=== PATIENT | female | born 1995 | race Caucasian/White ===

== ENCOUNTER 2024-12-31 17:50 | Emergency (ER) | payer OTHER ==
[~2024-12-31] VITALS: Ht 175.3 cm; Wt 76.4 kg
[2024-12-31] MEDS ORDERED: prednisoLONE ACETATE 1% 10 ML BTL OU ONE (20:15)
[2024-12-31 21:05] VITALS: BP 131/78
== END 2024-12-31 21:07 | disposition home or self-care (01) ==
LOC: ED 17:50
DX: H57.89 Other specified disorders of eye and adnexa (principal)
CPT/HCPCS: 99283

== ENCOUNTER 2025-03-09 17:22 | Emergency (ER) | payer OTHER ==
[~2025-03-09] VITALS: Ht 175.3 cm; Wt 76.4 kg
[2025-03-09] MEDS ORDERED: BUPROPION XL300 MG PO (17:48)
[2025-03-09] MEDS ORDERED: DIVALPROEX SOD500 MG PO (17:48)
[2025-03-09] MEDS ORDERED: QELBREE100 MG PO (17:48)
[2025-03-09] MEDS ORDERED: BUSPIRONE HCL10 MG PO (17:48)
[2025-03-09] MEDS ORDERED: NICOTINE1 EAC2 TD (17:48)
[2025-03-09] MEDS ORDERED: DISKETS40 MG PO (17:49)
[2025-03-09 18:52] VITALS: BP 115/73
== END 2025-03-09 18:52 | disposition home or self-care (01) ==
LOC: ED 17:22
DX: M79.675 Pain in left toe(s) (principal); Z79.899 Other long term (current) drug therapy
CPT/HCPCS: 73660; 99283